=== PATIENT | male | born 1950 | race Caucasian/White ===

== ENCOUNTER 2023-04-17 21:38 | Inpatient (IN) | payer MEDICARE, OTHER ==
[~2023-04-17] VITALS: Ht 175.3 cm; Wt 69.9 kg
[2023-04-17] MEDS: AZITHROMYCIN IV 500 MG in IV DEXTROSE 5% 250 ML IV ONE (00:20)
[2023-04-17] MEDS ORDERED: CEFTRIAXONE 2 G in IV DEXTROSE 5% 100 ML IV ONE (22:00)
[2023-04-17] MEDS ORDERED: CEFTRIAXONE 1 G VIAL ONE (22:13)
[2023-04-17 22:19] LABS: HEMATOCRIT 24.5 % (36.7-47.1); MEAN CORPUSCULAR HEMOGLOBIN 26.7 uug (23.8-33.4); MEAN CORPUSCULAR VOLUME 82.4 fL (73.0-96.2); PLATELET COUNT (AUTO) 183 K/uL (152-348)
[2023-04-17 22:25] LABS: CARBON DIOXIDE 24 mmol/L (21-32); CHLORIDE 96 mmol/L (98-107); CREATININE 0.9 mg/dL (0.6-1.3); GLUCOSE 139 mg/dL (74-106); POTASSIUM 3.9 mmol/L (3.5-5.1); UREA NITROGEN, BLOOD 14 mg/dL (7-18)
--- NOTE | 2023-04-17 22:27 | NUR ---
Patient taken to CT via gurney accompanied by maricel. No acute distress noted.
[2023-04-17 22:33] LABS: ALANINE AMINOTRANSFERASE 19 U/L (16-63); ALKALINE PHOSPHATASE 68 U/L (50-136); ASPARTATE AMINOTRANSFERASE 56 U/L (15-37); BILIRUBIN,DIRECT 0.3 mg/dL (0.0-0.2); BILIRUBIN,TOTAL 0.7 mg/dL (0.2-1.0); TOTAL PROTEIN, SERUM 6.4 g/dL (6.4-8.2)
--- NOTE | 2023-04-17 22:44 | NUR ---
Patient on panel call with Dr. Dawson. Pending admission.
[2023-04-18] MEDS ORDERED: AZITHROMYCIN 500MG/ D5W 250ML IVPB **ER PYXIS ONLY IV ONE (00:18)
[2023-04-18] MEDS: AZITHROMYCIN IV 500 MG in IV DEXTROSE 5% 250 ML IV ONE (00:20)
--- NOTE | 2023-04-18 00:55 | NUR ---
Patient aox4, ambulated to the bathroom indepedently. Activity tolerated well
--- NOTE | 2023-04-18 01:12 | NUR ---
called 3rd floor for LUIS bed, spoke with Lori UPTON. Patient assigned to room 308
--- NOTE | 2023-04-18 01:12 | NUR ---
Dr. Byrd on [facility] call with Víctor MAST. Pending admission.
[2023-04-18] MEDS ORDERED: TEMAZEPAM 15 MG CAPSULE PO PRN (01:15)
[2023-04-18] MEDS ORDERED: REMEDY ESSENTIAL ZINC PASTE 113 GM TP PRN (01:15)
[2023-04-18] MEDS ORDERED: ONDANSETRON 4 MG/2 ML VIAL IV PRN (01:15)
[2023-04-18] MEDS ORDERED: HYDROCODONE/APAP 5-325MG TABLET PO PRN (01:15)
[2023-04-18] MEDS ORDERED: ACETAMINOPHEN 325 MG TABLET PO PRN (01:15)
[2023-04-18] MEDS ORDERED: MAGNESIUM HYDROXIDE 30 ML LIQUID UDC PO PRN (01:15)
--- NOTE | 2023-04-18 01:27 | NUR ---
Called third floor to give report. RN unavaliable, waiting for call back.
[2023-04-18 01:28] LABS: *BILIRUBIN,URIN NEGATIVE (NEGATIVE); *BLOOD, URINE 3+ (NEGATIVE); *COLOR,URINE YELLOW (YELLOW); *KETONES,URINE TRACE (NEGATIVE); *UROBILINOGEN,URINE 0.2 E.U./dl (NORMAL); LEUKOCYTE ESTERASE ,URINE NEGATIVE (NEGATIVE); NITRITE, URINE NEGATIVE (NEGATIVE); PH,URINE 5.5 (5.0-8.0); UGLUCOSE NEGATIVE (NEGATIVE)
--- NOTE | 2023-04-18 01:34 | NUR ---
Report given to Barbara UPTON.
--- NOTE | 2023-04-18 01:35 | NUR ---
Asked appellate court clerk to roll over patient. Waiting on roll over papers.
[2023-04-18 02:05] LABS: *CLARITY,URINE HAZY (CLEAR)
[2023-04-18 02:19] LABS: BACTERIA,URINE NONE SEEN /HPF (NONE SEEN); RBC,URINE 20-50 /HPF (0-3); SQUAMOUS EPITHELIAL CELL,UR NONE SEEN /HPF (NONE SEEN); WBC,URINE 0-3 /HPF (0-3)
--- NOTE | 2023-04-18 03:44 | NUR ---
Patient taken to third floor room 309 via gurney with personal belongings. Patient in stable condition, no signs of distress noted. Barbara RN aware of patient's arrival.
[2023-04-18 03:56] VITALS: BP 109/44
[2023-04-18 04:00] VITALS: BP 147/64
[2023-04-18] MEDS: PANTOPRAZOLE SODIUM 40 MG TABLET.DR PO SCH (06:37)
--- NOTE | 2023-04-18 07:21 | NUR ---
REPORT GIVEN TO ALEXSANDRA NOLAN
[2023-04-18 08:00] VITALS: BP 108/55
[2023-04-18] MEDS: ENOXAPARIN SODIUM 40 MG/0.4 ML DISP.SYRIN SQ SCH (08:38)
[2023-04-18] MEDS: ASPIRIN 81 MG TAB.CHEW PO SCH (08:38)
[2023-04-18] MEDS: FUROSEMIDE 40 MG/4 ML VIAL IV SCH ×2 (10:30→21:25)
[2023-04-18 12:00] VITALS: BP 104/34
[2023-04-18] MEDS ORDERED: ERGO500040 PO (13:15)
[2023-04-18] MEDS ORDERED: TAMS-3 PO (13:15)
[2023-04-18] MEDS ORDERED: AMAN68.5 PO (13:15)
[2023-04-18] MEDS ORDERED: CARB-35 PO (13:15)
[2023-04-18] MEDS ORDERED: TRINTELLIX PO (13:15)
[2023-04-18] MEDS ORDERED: FOLATE PO (13:15)
[2023-04-18] MEDS ORDERED: INSULIN REGULAR, HUMAN 300 UNIT/3 ML VIAL SQ PRN (14:45)
[2023-04-18] MEDS ORDERED: DEXTROSE 50% 50 ML DISP.SYRIN IV PRN (14:45)
[2023-04-18] MEDS ORDERED: FOLI-140 PO ×2 (14:54→14:56)
[2023-04-18] MEDS ORDERED: AMAN137C PO (14:54)
[2023-04-18 16:00] VITALS: BP 96/53
[2023-04-18] MEDS: BLOOD SUGAR DIAGNOSTIC 1 EACH STRIP VI SCH ×2 (17:01→21:00)
[2023-04-18] MEDS: CARBIDOPA/LEVODOPA 25-100MG TABLET PO SCH ×2 (17:01→21:25)
[2023-04-18] MEDS ORDERED: AMANTADINE HCL 137 MG PO SCH (18:00)
[2023-04-18 20:09] VITALS: BP 101/49
[2023-04-18] MEDS ORDERED: CEFTRIAXONE 1 G in IV DEXTROSE 5% 50 ML IV SCH (21:00)
[2023-04-18] MEDS ORDERED: AZITHROMYCIN IV 500 MG in IV DEXTROSE 5% 250 ML IV SCH (21:00)
[2023-04-19 00:10] VITALS: BP 101/42
[2023-04-19 04:15] VITALS: BP 94/42
[2023-04-19] MEDS: PANTOPRAZOLE SODIUM 40 MG TABLET.DR PO SCH (06:18)
[2023-04-19 06:20] LABS: HEMATOCRIT 23.9 % (36.7-47.1); MEAN CORPUSCULAR HEMOGLOBIN 27.5 uug (23.8-33.4); MEAN CORPUSCULAR VOLUME 82.3 fL (73.0-96.2); PLATELET COUNT (AUTO) 141 K/uL (152-348)
[2023-04-19 06:33] LABS: CREATININE 0.8 mg/dL (0.6-1.3); MAGNESIUM 1.8 mg/dL (1.8-2.4); PHOSPHOROUS 4.5 mg/dL (2.5-4.9); POTASSIUM 3.4 mmol/L (3.5-5.1)
[2023-04-19 06:38] LABS: THYROID STIMULATING HORMONE 2.143 mIU/mL (0.358-3.740)
[2023-04-19] MEDS: BLOOD SUGAR DIAGNOSTIC 1 EACH STRIP VI SCH ×2 (06:54→11:58)
[2023-04-19 08:00] VITALS: BP 107/54
[2023-04-19] MEDS ORDERED: [UNRECOGNIZED DRUG - OTHER] PO SCH (09:00)
[2023-04-19] MEDS ORDERED: TAMSULOSIN HCL 0.4 MG CAP.SR.24H PO SCH (09:00)
[2023-04-19] MEDS ORDERED: CIT PO SCH (09:00)
[2023-04-19] MEDS ORDERED: CALCIUM PO SCH (09:00)
[2023-04-19] MEDS ORDERED: FOLIC PO SCH (09:00)
[2023-04-19] MEDS ORDERED: MULTIVIT, IRON, MIN NO. 8, FA TABLET PO SCH (09:00)
[2023-04-19] MEDS ORDERED: D3 PO SCH (09:00)
[2023-04-19] MEDS: CARBIDOPA/LEVODOPA 25-100MG TABLET PO SCH ×2 (09:32→12:34)
[2023-04-19] MEDS: ASPIRIN 81 MG TAB.CHEW PO SCH (09:32)
[2023-04-19] MEDS: ENOXAPARIN SODIUM 40 MG/0.4 ML DISP.SYRIN SQ SCH (09:34)
[2023-04-19 09:51] LABS: IRON, SERUM 16 ug/dL (50-175)
[2023-04-19] MEDS ORDERED: POTASSIUM CHLORIDE 20 MEQ TAB.PRT.SR PO ONE (10:00)
[2023-04-19] MEDS ORDERED: IOHEXOL 350 100 ML INFUS..BTL ONE (11:26)
[2023-04-19] MEDS ORDERED: IV NORMAL SALINE 250 ML IV ONE (11:26)
[2023-04-19] MEDS ORDERED: SWABABLE VALVE TRANSFER SET EA MC ONE (11:26)
[2023-04-19] MEDS ORDERED: FUROSEMIDE 40 MG/4 ML VIAL IV ONE (11:45)
[2023-04-19 11:53] VITALS: BP 101/36
--- NOTE | 2023-04-19 12:54 | NUR ---
Patient leaving AMA with family. Dr Jimenez (related to patient) spoke with the family and instructed them about going AMA and told them to call him if they have any questions. They are going to take patient to [facility]. I educated them about stroke care and s/s and that it was essential to call 911 to get to the hospital for care when stroke is suspected Addendum: 04/19/23 at 1258 by AN MEZA RN Dr Nobles also saw the patient and was informed that family and patient didn't want the CTA and that they were going to go AMA to [facility]
== END 2023-04-19 13:00 | disposition left against medical advice (07) | DRG 280 ==
LOC: ER 21:38 → TELE-TD3 04-18 01:15 → TELE3 04-18 18:20
PROVIDERS: ADMIT Nurse Practitioner Acute Care; ATTEND Nurse Practitioner Acute Care
DX: I50.31 Acute diastolic (congestive) heart failure (principal); I33.0 Acute and subacute infective endocarditis; I21.A1 Myocardial infarction type 2; J18.9 Pneumonia, unspecified organism; E87.1 Hypo-osmolality and hyponatremia; G45.9 Transient cerebral ischemic attack, unspecified; E46 Unspecified protein-calorie malnutrition; G20 Parkinson's disease; E78.5 Hyperlipidemia, unspecified; I44.7 Left bundle-branch block, unspecified; E88.09 Other disorders of plasma-protein metabolism, not elsewhere classified; N40.0 Benign prostatic hyperplasia without lower urinary tract symptoms; E11.9 Type 2 diabetes mellitus without complications; Z86.73 Personal history of transient ischemic attack (TIA), and cerebral infarction without residual deficits; D64.9 Anemia, unspecified; R47.81 Slurred speech; E86.1 Hypovolemia; I08.0 Rheumatic disorders of both mitral and aortic valves
CPT/HCPCS: 36415; 70450; 71045; 83550; 83605; 83735; 84100; 84443; 84484; 84550; 85025; 85651; 85730; 86140; 87040; 93005; 93307; G0378; J0456; J0696; J1650; J1815; J1940; J7050; Q9967